=== PATIENT | female | born 2000 | race Caucasian/White ===

== ENCOUNTER → 2023-02-06 12:44 | Outpatient (BNVA) | payer OTHER, SELFPAY | PROVIDERS: Visit Provider Physician Assistant Surgical ==

== ENCOUNTER 2023-02-10 08:06 | Outpatient (AMB) | payer OTHER, SELFPAY ==
--- NOTE | 2023-02-10 08:33 | A.OFFVIS_ITS ---
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 12 [employer]ISITING [employer] [facility] BMI 41.0 Allergies No Known Allergies Allergy (Verified 02/10/23 08:33) Medication List - Last Reconciled 02/10/23 by Colton Vickers MD albuterol sulfate 90 mcg/actuation 2 puffs inhalation Q6H PRN duloxetine 30 mg PO DAILY HPI TV GRADES 9 THRU 12 [employer] SWL BMI 41.0 HPI Details Start time: 8.30am, End time: 9.20am ?I spent 45 minutes speaking with the patient on the phone plus an additional 5 minutes reviewing and updating records for a total of 50 minutes HPI Comments History of Present Illness Details Previous weight loss efforts: Exercise, self diets sleeps: 1am, wakes up: 10am Breakfast: skips Lunch: 1pm (fast food) Dinner: 5-6pm (pizza, grinders, wraps at work) Snacks: 3pm (fruit, nuts, apple sauce) Exercise: none now Fluids: Coffee/Tea: none, soda: none, juice: Cranberry/passion fruit juice (2- 3/wk), ETOH: (1/month) [facility] Medical History (Updated 02/10/23 @ 08:35 by Colton Vickers MD) Anxiety Depression Back pain Asthma Morbid obesity Assessment & Plan Assessment & Plan (1) Morbid obesity: Code(s): E66.01 - Morbid (severe) obesity due to excess calories Plan: 1.? Plan for lap sleeve gastrectomy. If diaphragmatic or ventral hernias are present at time of surgery, these will be repaired laparoscopically as well. Risks and complications were discussed in detail including possible conversion to an open procedure, anastomotic leak, bleeding requiring transfusion, small bowel obstruction, , DVT and pulmonary embolism, cardiac, or pulmonary complications, as intermediate frame tender complications such as anastomotic ulcer, insufficient weight loss and vitamin deficiencies. I emphasized the importance of close follow-up, adherence to instructions and good communication. 2. Nutritional counseling. A) WITH JUICE TYPE PROTEIN SHAKE: Start with one Isopure INFUSIONS protein shake (buy at [employer]) (HALF scoop in 8oz water) at 11am-1pm, dinner at 2pm (8 forks of protein and 8 forks of salad/vegetables), one more Isopure Infusions protein shake (HALF scoop in 8oz water) at 4pm-6pm, and 2 Zone Perfect protein bars (buy at [employer]) at 7pm-9pm and 10pm-12am. B) WITH MILK TYPE PROTEIN SHAKE: Start with one orgain protein shake (buy at [employer]) (one scoop in 8oz low fat unsweetened almond milk) at 11am-1pm, dinner at 2pm (8 forks of protein and 8 forks of salad/vegetables), one more ORGAIN protein shake (ONE scoop in 8oz low fat unsweetened almond milk) at 4pm-6pm, and 2 Zone Perfect protein bars (buy at [employer]) at 7pm-9pm and 10pm-12am. So you do 2 protein shakes, 2 protein bars and one meal per day. Meal to include lean meat (beef, fish, pork, turkey, chicken), or czech yogurt, or egg whites, or beans with a salad with olive oil and fruits (berries, pears, apples, kiwi). Avoid salt, breads, potatoes, rice, pasta, desserts. 3. Each shake would be drunk slowly, like coffee in a period of 2 hours. 4. Cut each bar in 4 pieces and eat each piece in 30min ?to make each bar last 2 hours. 5. I emphasized the importance of measuring accurately the food portion and measure it when serving the food in plate 6. The meal portions include 8 full-size forks of meat and 8 full-size forks of salad. You always eat the meat portion but you can replace up to 4 forks for salad/vegetables with rice, potatoes or pasta, or a fruit ?if you like. The less you do it the better weight loss will be. 7. One full-size fork is what it can be scooped on the fork without falling aside and not what can be bit with the fork. Use regular forks like those you find in a typical restaurant. 8.? Please send me weight measurements as soon as possible and then once a week. Always include your diet and exercise plan. 9. Please purchase a stationary bike, elliptical or treadmill at home that can track calories. Let me know if you do so I can give you an exercise plan. Goal is to burn 2000 calories per week on exercise, which means either 300 calories daily, or 400 calories 5 days per week, or 500 calories 4 days per week, or 650 calories 3 days per week. 10. Let me know if you decide to go to the Gym instead so I can give you an exercise plan as well. 11.?It is important of avoiding and for at least 18 months postoperatively and has been discussed at the infosession. 12. Goal is to lose at least 1.5-2lbs per week 13. Goal to lose 10% of your weight before surgery, which is about 22lbs. Ultimate weight goal: 195lbs before surgery 14. Please follow the diet plan exactly without any change. If you don't like something about the plan or you feel hungry you need to communicate with me so I can help you revise the plan. You should not change the plan yourself. (2) Asthma: Code(s): J45.909 - Unspecified asthma, uncomplicated Orders: Orders Zinc Today E66.01 - Morbid (severe) obesity due to excess calories, J45.909 - Unspecified asthma, uncomplicated Vitamin A Today E66.01 - Morbid (severe) obesity due to excess calories, J45.909 - Unspecified asthma, uncomplicated Ferritin Today E66.01 - Morbid (severe) obesity due to excess calories, J45.909 - Unspecified asthma, uncomplicated PTHI Today E66.01 - Morbid (severe) obesity due to excess calories, J45.909 - Unspecified asthma, uncomplicated TSH reflex Free T4 Today E66.01 - Morbid (severe) obesity due to excess calories, J45.909 - Unspecified asthma, uncomplicated H Pylori Breath Test Today E66.01 - Morbid (severe) obesity due to excess calories, J45.909 - Unspecified asthma, uncomplicated Vitamin D 25-OH Total Today E66.01 - Morbid (severe) obesity due to excess calories, J45.909 - Unspecified asthma, uncomplicated US abdomen comp w elastography Today E66.01 - Morbid (severe) obesity due to excess calories, J45.909 - Unspecified asthma, uncomplicated ECG 12 lead EKG Today E66.01 - Morbid (severe) obesity due to excess calories, J45.909 - Unspecified asthma, uncomplicated Insulin Today E66.01 - Morbid (severe) obesity due to excess calories, J45.909 - Unspecified asthma, uncomplicated Lipid Panel Today E66.01 - Morbid (severe) obesity due to excess calories, J45.909 - Unspecified asthma, uncomplicated IRON PROFILE Today E66.01 - Morbid (severe) obesity due to excess calories, J45.909 - Unspecified asthma, uncomplicated Complete Blood Count Auto Diff Today E66.01 - Morbid (severe) obesity due to excess calories, J45.909 - Unspecified asthma, uncomplicated Vitamin B12 and Folate Today E66.01 - Morbid (severe) obesity due to excess calories, J45.909 - Unspecified asthma, uncomplicated Comprehensive Met. Panel Today E66.01 - Morbid (severe) obesity due to excess calories, J45.909 - Unspecified asthma, uncomplicated Vitamin B1 Today E66.01 - Morbid (severe) obesity due to excess calories, J45.909 - Unspecified asthma, uncomplicated C Reactive Protein Today E66.01 - Morbid (severe) obesity due to excess calories, J45.909 - Unspecified asthma, uncomplicated Hemoglobin A1c Today E66.01 - Morbid (severe) obesity due to excess calories, J45.909 - Unspecified asthma, uncomplicated XR chest 2V Today E66.01 - Morbid (severe) obesity due to excess calories, J45.909 - Unspecified asthma, uncomplicated FL upper GI w air Today E66.01 - Morbid (severe) obesity due to excess calories, J45.909 - Unspecified asthma, uncomplicated Referrals Behavioral Health Referral E66.01 - Morbid (severe) obesity due to excess calories, J45.909 - Unspecified asthma, uncomplicated Nutrition/Dietitian Referral E66.01 - Morbid (severe) obesity due to excess calories, J45.909 - Unspecified asthma, uncomplicated Telehealth Telehealth Location of provider rendering services: practice address Location of patient: address on file Patient Identification confirmed using: Name, : Yes Telehealth method: voice only Patient verbally consented to treatment: Yes Patient verbally consented to billing insurance company: Yes Patient informed of any privacy concerns related to visit: Yes Minutes spent on Phone/Video with Pt.: 50 Coding Level of Care Code Tele New Pt Level 4 (40605) Diagnoses Morbid obesity E66.01 Asthma J45.909 Time Spent (min) 50
[2023-02-10 08:44] VITALS: BMI 41.0
== END 2023-02-10 09:21 | disposition home or self-care (01) ==
PROVIDERS: Visit Provider Surgery
DX: E66.01 Morbid (severe) obesity due to excess calories (principal); J45.909 Unspecified asthma, uncomplicated
CPT/HCPCS: 99204

== ENCOUNTER → 2023-02-10 08:06 | Outpatient (BNVA) | payer OTHER, SELFPAY | PROVIDERS: Visit Provider Surgery ==

== ENCOUNTER 2023-02-21 09:07 | Outpatient (REF) | payer OTHER, SELFPAY ==
--- NOTE | ~2023-02-21 | XR_ITS ---
EXAMINATION: XR CHEST 2 VIEWS CLINICAL INFORMATION: Morbid obesity. COMPARISON: None. TECHNIQUE: Frontal and lateral views of the chest were obtained. FINDINGS: The heart, great vessels, pulmonary vasculature and mediastinum are normal. The lungs show no focal infiltrate, effusion or pneumothorax. There is no acute osseous abnormality. There is a mild lower thoracic dextroscoliosis. XR/XR chest 2V IMPRESSION: No active cardiopulmonary disease.
--- NOTE | 2023-02-21 09:19 | ECG_ITS ---
Test Reason : E66.01 Blood Pressure : / mmHG Vent. Rate : 088 BPM Atrial Rate : 088 BPM P-R Int : 136 ms QRS Dur : 078 ms QT Int : 352 ms P-R-T Axes : 029 018 012 degrees QTc Int : 425 ms Normal sinus rhythm Normal ECG No previous ECGs available Referred By: Colton Vickers Electronically Signed By:NOEMI OLIVIA MD
[2023-02-21 09:42] LABS: MANUAL DIFF FLAG NO
[2023-02-21 10:49] LABS: Estimated Average Glucose 88 mg/dL; Hemoglobin A1c % 4.7 % (<6.0)
[2023-02-21 11:00] LABS: Alanine Aminotransferase 29 U/L (0-31); Albumin Level 3.9 g/dL (3.5-5.0); Alkaline Phosphatase 64 U/L (39-117); Anion Gap 10 (12-20); Aspartate Amino Transferase 24 U/L (5-31); Bilirubin Total 0.5 mg/dL (0.0-1.0); Blood Urea Nitrogen 13 mg/dL (9-16); C Reactive Protein 3.29 mg/dL (< or = 0.50); Calcium 9.1 mg/dL (8.4-10.2); Carbon Dioxide 24 mmol/L (22-29); Chloride 107 mmol/L (96-108); Cholesterol 142 mg/dL (<200); Estimated Glomerular Filt Rate > 60; Glucose Random 87 mg/dL (60-115); HDL Cholesterol 43 mg/dL (>40); Iron 55 mcg/dL (30-160); LDL Cholesterol Calculated 83 mg/dL (<100); Percent Iron Saturation 19 % (15-50); Potassium 3.9 mmol/L (3.3-5.1); Sodium 137 mmol/L (135-145); Total Iron Binding Capacity 292 mcg/dL (228-428); Total Protein 7.4 g/dL (6.5-8.0); Triglycerides 80 mg/dL (<150); Unsaturated Iron Binding 237 ug/dL
[2023-02-21 11:20] LABS: Folate 12.5 ng/mL (> or = 4.0); Vitamin B12 729 pg/mL (200-900)
[2023-02-21 11:23] LABS: Ferritin 49 ng/mL (10-122); Insulin 17 uU/mL (2-29); TSH reflex Free T4 1.89 uIU/mL (0.32-4.0); Vitamin D 25-OH Total 28.5 ng/mL (>30)
[2023-02-21 11:43] LABS: Basophils Percent Auto 0.5 % (0-2); Eosinophils Absolute Auto 0.2 X10*3/uL (0.0-0.4); Eosinophils Percent Auto 2.5 % (0-4); Hematocrit 38.4 % (37.0-47.0); Hemoglobin 12.7 g/dl (12.0-16.0); Imm Gran Abs Auto 0.03 X10*3/uL (0.00-0.03); Imm Gran Pct Auto 0.4 % (0.0-0.4); Lymphocytes Absolute Auto 2.2 X10*3/uL (1.2-4.9); Lymphocytes Percent Auto 29.5 % (20-40); Mean Corpuscular HGB Conc 33.1 g/dl (31.0-35.0); Mean Corpuscular Hemoglobin 26.8 pg (27.0-33.0); Mean Platelet Volume 9.9 fL (9.4-12.3); Monocytes Absolute Auto 0.6 X10*3/uL (0.1-1.2); Monocytes Percent Auto 7.9 % (2-11); Neutrophils Absolute Auto 4.4 x10*3/uL (2.0-8.3); Neutrophils Percent Auto 59.2 % (45-73); Platelet Count 263 X10*3/uL (160-400); Red Blood Count 4.74 X10*6/uL (4.20-5.50); White Blood Count 7.5 X10*3/uL (4.8-10.8)
[2023-02-23 17:18] LABS: Zinc 80 mcg/dL (60-130)
[2023-02-24 03:19] LABS: Vitamin A 39 mcg/dL (38-98)
[2023-02-25 11:38] LABS: Vitamin B1 <6 nmol/L (8-30)
== END 2023-02-21 09:08 | disposition home or self-care (01) ==
LOC: HO.LAB 09:07
PROVIDERS: Visit Provider Surgery
DX: E66.01 Morbid (severe) obesity due to excess calories (principal); J45.909 Unspecified asthma, uncomplicated
CPT/HCPCS: 36415; 71046; 80053; 80061; 82306; 82607; 82728; 82746; 83036; 83525; 83540; 84425; 84443; 84590; 84630; 85025; 86140; 93005

== ENCOUNTER 2023-02-24 08:15 | Outpatient (AMB) | payer OTHER, SELFPAY ==
--- NOTE | 2023-02-24 08:56 | MHC.OFFVISWM ---
Intake Intake Visit Reasons: TV Follow Up SWL - 1ST Allergies No Known Allergies Allergy (Verified 02/10/23 08:33) HPI TV Follow Up SWL - 1ST HPI Details Start time: 8.40am, End time: 9am ?I spent 15 minutes speaking with the patient on the phone plus an additional 5 minutes reviewing and updating records for a total of 20 minutes HPI Comments History of Present Illness Details Ordered the body composition scale Is doing one Orgain protein shake (one scoop in 8oz low fat unsweetened almond milk) at 11am-1pm, dinner at 2pm (8 forks of protein and 8 forks of salad/vegetables), one more ORGAIN protein shake (ONE scoop in 8oz low fat unsweetened almond milk) at 4pm-6pm, and 2 Zone Perfect protein bars at 7pm-9pm and 10pm-12am. Exercise: will join a Gym [facility] Medical History (Updated 02/24/23 @ 08:57 by Colton Vickers MD) Anxiety Depression Back pain Asthma Morbid obesity Assessment & Plan Assessment & Plan (1) Morbid obesity: Code(s): E66.01 - Morbid (severe) obesity due to excess calories Plan: 1. Continue same nutritional plan of one Orgain protein shake (one scoop in 8oz low fat unsweetened almond milk) at 11am-1pm, dinner at 2pm (8 forks of protein and 8 forks of salad/vegetables), one more ORGAIN protein shake (ONE scoop in 8oz low fat unsweetened almond milk) at 4pm-6pm, and 2 Zone Perfect protein bars at 7pm-9pm and 10pm-12am. 2. Start treadmill with an incline of 2.0 and speed of 3.0. Increase incline by 1 every 3 min to a max incline of 8.0, stay 3min at 8.0 and then return to 2.0 and repeat same steps until calorie goal is met. Goal is to burn 2000 calories per week on exercise, which means either 300 calories daily, or 400 calories 5 days per week, or 500 calories 4 days per week, or 650 calories 3 days per week. 3. Send me weight measurements from your new scale as soon as you receive it and then once a week Medications: New cholecalciferol (vitamin D3) 125 mcg PO DAILY 30 caps 2RF E55.9 - Vitamin D deficiency, unspecified Telehealth Telehealth Location of provider rendering services: practice address Location of patient: address on file Patient Identification confirmed using: Name, : Yes Telehealth method: voice only Patient verbally consented to treatment: Yes Patient verbally consented to billing insurance company: Yes Patient informed of any privacy concerns related to visit: Yes Minutes spent on Phone/Video with Pt.: 20 Coding Level of Care Code Tele Est Pt Level 3 (94371) Diagnoses Morbid obesity E66.01 Time Spent (min) 20
== END 2023-02-24 09:01 | disposition home or self-care (01) ==
LOC: HO.HBS 08:15
PROVIDERS: PCP Internal Medicine; Visit Provider Surgery
DX: E66.01 Morbid (severe) obesity due to excess calories (principal)
CPT/HCPCS: 99213

== ENCOUNTER → 2023-02-24 08:15 | Outpatient (BNVA) | payer OTHER, SELFPAY | PROVIDERS: PCP Internal Medicine; Visit Provider Surgery ==

== ENCOUNTER 2024-07-08 11:59 | Outpatient (AMB) | payer OTHER, SELFPAY ==
--- NOTE | 2024-07-08 12:41 | MHC.PC.OV ---
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 She sees [facility], for her routine Pap and pelvic exam, last done 04/04/2023 with negative findings. Has mild intermittent asthma, takes albuterol only as needed for episodes of bronchospasm and wheezing. She does not smoke cigarettes but does vape. Has morbid obesity, previously [place] [facility] , as decided against getting bariatric surgery. She has been adhering to a healthy diet, and has been trying to exercise regularly, has lost some weight but not enough. Patient is also think of getting breast reduction surgery but they would not do surgery until she loses some weight. She is interested in trying other treatment options for weight loss [facility] Medical History (Updated 07/17/24 @ 16:27 by Sanjana Huang MD) Mild intermittent asthma PCOS (polycystic ovarian syndrome) Back pain Morbid obesity Surgical History (Updated 07/08/24 @ 13:01 by Sanjana Huang MD) History of Family History (Updated 07/08/24 @ 13:04 by Sanjana Huang MD) Father Glioblastoma Mother Essential hypertension Social History Housing: Apartment Patient Tobacco Use Status: Never used Tobacco e-Cigarette/Vaping Use: Currently Using service: No Current occupational status: employed Current occupational exposures/hazards: No Cognitive needs: No Hearing needs: No Vision needs: No Female Reproductive History Menstrual Date of last menstrual period: 06/24/24 Questionnaire PHQ-9 Over the last 2 weeks, how often have you been bothered by any of the following problems? 33084 - PHQ-9 Billing: Patient declined-do not bill Source: Developed by Drs. Douglas Gan, Flavia Paz, Mert Centeno and colleagues, with an educational elías from [employer]. Thrive Questionnaire Date Thrive assessed: 07/08/24 I am a: Patient What is your living situation today?: I have a steady place to live Within the past 12 months, did the food you bought not last and you didn't have the money to get more?: Sometimes True Within the past 12 months, did you worry whether your food would run out before you got money to buy more?: Sometimes True Do you have trouble paying for medicines?: No Do you have trouble getting transportation to medical appointments?: No Do you have trouble paying your heating and electricity bill?: No Do you have trouble taking care of your child, family member or friend?: No Do you have trouble with day-to-day activities such as bathing, preparing meals, shopping, managing finances, etc.?: Yes Are you currently unemployed and looking for a job?: No Are you interested in more education?: No Please select the resources that you would like help with: None Currently or been in a relationship where the following occur: I choose not to answer THRIVE Score: 2 AUDIT C Alcohol Use Questionnaire (AUDIT-C) 1. How often do you have a drink containing alcohol?: Monthly or less 2. How many drinks containing alcohol do you have on a typical day when you are drinking?: 1 or 2 3. How often do you have six or more drinks on one occasion?: Less than monthly Total Score: 2 Score Reviewed/Action Taken: Yes CARLITA-7 AMB Questionnaire CARLITA-7 Date CARLITA - 7 assessed: 07/08/24 Feeling nervous, anxious, or on edge: 2 = More than half the days Not being able to stop or control worryin = More than half the days Worrying too much about different things: 2 = More than half the days Trouble relaxin = Several days Being so restless that it is hard to sit still: 1 = Several days Becoming easily annoyed or irritable: 3 = Nearly every day Feeling afraid as if something awful might happen: 0 = Not at all Total CARLITA-7 score (0-4 normal; 5-9 mild; 10-14 moderate; 15-21 severe): 11 Source: Developed by Drs. Douglas Gan, Flavia Paz, Mert Centeno and colleagues, with an educational elías from [employer]. CARLITA-7 Assessment Billing CARLITA-7 Assessment Tool: CARLITA-7 Assessment 39462 Review of Systems Const Reports body aches (Back pain), Denies fatigue, Denies fever(s), Denies headache(s) and Denies weakness Eyes Denies change in vision, Denies eye discharge and Denies itchy eyes ENT Denies dizziness, Denies headache(s), Denies nasal congestion, Denies nasal discharge and Denies sore throat Card Denies chest pain, Denies lightheadedness, Denies palpitations and Denies dyspnea Resp Denies chest congestion, Denies cough, Denies dyspnea and Denies wheezing GI Denies abdominal pain, Denies change in bowel habits and Denies heartburn Denies hematuria, Denies urinary frequency, Denies dysuria and Denies urinary urgency Musc Reports as per HPI Skin/Breast Denies breast pain, Denies breast mass, Denies lesions and Denies rash Neuro Denies dizziness, Denies headache(s) and Denies weakness Psych Reports no additional complaints Endo Denies fatigue, Denies polydipsia, Denies polyuria and Denies palpitations Augsto/Lymph Denies easy bruising Aller/Immun Denies itchy eyes, Denies seasonal rhinorrhea and Denies wheezing Physical exam (Primary Care) Vital Signs: Last Vital Signs Pulse 82 07/08/24 12:44 Resp 18 07/08/24 12:44 BP 126/88 07/08/24 12:44 Pulse Ox 100 07/08/24 12:44 Oxygen Delivery Method Room Air 07/08/24 12:44 BMI result Body Mass Index 39.3 Tobacco/Smoking Status: Tobacco use Status Tobacco use date assessed 07/08/24 07/08/24 12:48 Patient Tobacco Use Status Never used Tobacco 07/08/24 12:48 e-Cigarette/Vaping Use Currently Using 07/08/24 12:48 Thrive Assessment: Date of Thrive Assessment Date Thrive assessed 07/08/24 07/08/24 12:48 Currently or been in a relationship where the following occur: I choose not to answer Const General: no acute distress and alert Orientation/consciousness: patient oriented x3 HENMT Ears: external ears normal, TM's normal bilaterally and EAC's normal General nose exam: Normal external nose present Face and sinus: Yes face symmetric Mouth: Normal oral and palatal mucosa present, lip normal, tongue normal, oropharynx normal and moist mucous membranes Eyes General: appearance normal, both eyes and all related structures Eyelids: Yes eyelids normal Conjunctivae: conjunctivae normal Sclerae: sclerae normal Pupils: Equal, round and reactive pupils present EOM: EOMs intact bilaterally Neck Neck: Yes full ROM, Yes no lymphadenopathy and Yes supple Thyroid: Thyroid normal Chest Chest palpation & inspection: normal inspection of the chest Breast/axilla inspection: normal inspection of the breasts Breast/axilla palpation: normal palpation of the breasts Resp Effort & Inspection: normal respiratory effort and able to speak in complete sentences Auscultation: clear to auscultation bilaterally Cardio Rate: regular rate Rhythm: regular rhythm Heart sounds: S1 normal heart sound present and S2 normal heart sound present GI Palpation (GI): Soft to palpation, nontender, no guarding and no masses Auscultation: normal bowel sounds General: Yes no CVA tenderness Back/Spine/Pelvis Back: no CVA tenderness and back tenderness (Slight tenderness over interscapular area and upper back) Skin General skin exam: no rashes or lesions noted Neuro General: patient oriented x3, gait normal, moves all extremities, Normal light touch and pain sensation, no focal motor deficits and CN's II-XI intact bilaterally Cranial nerves: Yes Equal, round and reactive pupils present Cognition (Neuro): normal cognition Gait exam (Neuro): Normal gait present Motor exam (neuro): 5/5 motor strength present throughout Extrem General: Yes normal to inspection, Yes full ROM, Yes no joint enlargement, Yes no pedal edema and Yes normal gait Psych Appearance: grossly normal and well kempt Mental Status: mental status grossly normal Speech and movement: Normal speech and movement present Affect: normal affect Attitude: cooperative Thought process: Normal thought process present Thought content: Normal thought content present Coding Level of Care Code New Pt Prev Care 18-39yr([id number] Diagnoses Annual visit for general adult medical examination with abnormal findings Z00.01 Morbid obesity E66.01 Mild intermittent asthma without complication J45.20 Asthma complication type: uncomplicated PCOS (polycystic ovarian syndrome) E28.2 Additional Codes CARLITA-7 Assessment Billing - CARLITA-7 Assessment Tool: CARLITA-7 Assessment 91622 ([id number]) Assessment & Plan Assessment & Plan (1) Annual visit for general adult medical examination with abnormal findings: Code(s): Z00.01 - Encounter for general adult medical examination with abnormal findings Plan: Will check appropriate labs. Recommended dental visit every 6 months and regular eye exams, at least every 2 years. Take adequate calcium in diet and vitamin-D 3 at 2000 IU per cap once a day, in addition to weight-bearing exercises to help maintain good muscle tone and weight control. Instructed to do self-breast exam, and recommended to get yearly mammogram, starting at age 40. Goes to [facility] for routine Pap and pelvic exam . up-to-date with her Tdap,, reminded to get her yearly flu shot but does not want to get COVID boosters. Patient advised to stop vaping. (2) Morbid obesity: Code(s): E66.01 - Morbid (severe) obesity due to excess calories Category: Medical Plan: Will try on phentermine, started dose of 15 mg to take 2 hours after breakfast. Reinforced importance of combining this with adherence to healthy eating habits and getting regular exercise. See her back for follow-up in 09/2024 (3) Mild intermittent asthma: Code(s): J45.20 - Mild intermittent asthma, uncomplicated Category: Medical Qualifiers: Asthma complication type: uncomplicated Qualified Code(s): J45.20 - Mild intermittent asthma, uncomplicated Plan: Uses albuterol inhaler as needed for episodes of bronchospasm and wheezing, which occurs rarely (4) PCOS (polycystic ovarian syndrome): Code(s): E28.2 - Polycystic ovarian syndrome Category: Medical Plan: Followed at [facility], weight loss recommended Orders: Orders Aspartate Amino Transferase 07/08/24 E66.01 - Morbid (severe) obesity due to excess calories, E55.9 - Vitamin D deficiency, unspecified, F41.9 - Anxiety disorder, unspecified, J45.20 - Mild intermittent asthma, uncomplicated, Z00.01 - Encounter for general adult medical examination with abnormal findings Basic Metabolic Panel Fasting 07/08/24 E66. - Morbid (severe) obesity due to excess calories, E55.9 - Vitamin D deficiency, unspecified, F41.9 - Anxiety disorder, unspecified, J45.20 - Mild intermittent asthma, uncomplicated, Z00. - Encounter for general adult medical examination with abnormal findings Lipid Panel 07/08/24 E66. - Morbid (severe) obesity due to excess calories, E55.9 - Vitamin D deficiency, unspecified, F41.9 - Anxiety disorder, unspecified, J45.20 - Mild intermittent asthma, uncomplicated, Z00. - Encounter for general adult medical examination with abnormal findings Vitamin D 25-OH Total 07/08/24 E66. - Morbid (severe) obesity due to excess calories, E55.9 - Vitamin D deficiency, unspecified, F41.9 - Anxiety disorder, unspecified, J45.20 - Mild intermittent asthma, uncomplicated, Z00.01 - Encounter for general adult medical examination with abnormal findings TSH reflex Free T4 07/08/24 E66. - Morbid (severe) obesity due to excess calories, E55.9 - Vitamin D deficiency, unspecified, F41.9 - Anxiety disorder, unspecified, J45.20 - Mild intermittent asthma, uncomplicated, Z00.01 - Encounter for general adult medical examination with abnormal findings Alanine Aminotransferase 07/08/24 E66. - Morbid (severe) obesity due to excess calories, E55.9 - Vitamin D deficiency, unspecified, F41.9 - Anxiety disorder, unspecified, J45.20 - Mild intermittent asthma, uncomplicated, Z00.01 - Encounter for general adult medical examination with abnormal findings Complete Blood Count Auto Diff 07/08/24 E66. - Morbid (severe) obesity due to excess calories, E55.9 - Vitamin D deficiency, unspecified, F41.9 - Anxiety disorder, unspecified, J45.20 - Mild intermittent asthma, uncomplicated, Z00.01 - Encounter for general adult medical examination with abnormal findings
[2024-07-08 12:44] VITALS: BP 126/88; PULSE 82; RESP 18; O2SAT 100; BMI 39.3
--- OUTSIDE RECORDS SUMMARY | 2024-07-08 14:04 | XMS_ITS | Encounter Summary ---
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 Primary Care Provider [phone] Encounter Details Date Type Department Care Team (Late st Contact Info) Description 06/18/2014 Conversion Encounter [facility] [address] [place] [id number] Social History Tobacco Use Types Packs/Day Years Used Date Smoking Tobacco: Never Assessed Comments Unknown Sex and Gender Information Value Date Recorded Sex Assigned at Not on file Legal Sex Female 6:29 PM EDT Gender Identity Female 06/14/2020 9:47 AM EDT Sexual Orientation Not on file documented as of this encounter Plan of Treatment Not on file documented as of this encounter Visit Diagnoses Not on filedocumented in this encounter Care Teams [address] [employer] Relationship Specialty Start Date End Date Gloria Gomez NP [address] [place] [address] [place] [address] PCP - General Pediatrics 09/13/22 documented as of this encounter
--- OUTSIDE RECORDS SUMMARY | 2024-07-08 14:04 | XMS_ITS | Clinical Summary ---
Author Organization [facility] Address [address] [place] [address] Phone Care Team Providers Care Garbage Collector Name Role Phone Gloria Gomez COMMUNITY DIETITIAN Primary Care Provider [phone] Allergies Active Allergy Reactions Criticality Noted Date Comments Food 04/29/2022 Shellfish Allergy 04/29/2022 Medications cetirizine (ZYRTEC ALLERGY) 10 MG tabletIndication s:Acute URI Take 1 tablet (10 mg total) by mouth nightly as needed for allergies. 30 tablet 1 9 Active ibuprofen 800 MG tablet 0 0 Active hydrOXYzine 25 MG tabletIndication s:Depression with anxiety Take 1 tablet (25 mg total) by mouth 3 (three) times a day as needed for anxiety for up to 10 days. 15 tablet 1 2 Active triamcinolone 0.1 % creamIndications :Rash Apply topically 2 (two) times a day as needed for rash. 15 g 1 3 Active Additional Information Patient not taking.Reported on 09/07/2022 albuterol HFA 108 (90 Base) MCG/ACT inhalerIndicatio ns:Mild intermittent asthma without complication Inhale 2 puffs every 4 (four) hours as needed for wheezing or shortness of breath. 2 Units 3 Active FLUoxetine (PROzac) 10 MG capsuleIndicatio ns:Anxiety with depression Take one capsule by mouth along with a 20mg capsule to equal 30mg daily. 30 capsule 3 Active FLUoxetine (PROzac) 20 MG capsuleIndicatio ns:Anxiety with depression Take one capsule by mouth along with a 10mg capsule to equal 30mg daily. 30 capsule 3 Active Active Problems Problem Noted Date Diagnosed Date Otitis externa 06/16/2022 Assessment & Plan (06/16/2022 3:21 PM EDT): Exam consistent with left otitis externa. Giselle should d/c the drops she is using and begin the drops ordered today. Call office for re-evaluation if symptoms persist or worsen. Missed period 05/26/2022 Assessment & Plan (05/26/2022 12:18 PM EST): Negative test. Viral URI 05/26/2022 Assessment & Plan (05/26/2022 12:18 PM EST): Exam is reassuring. No red flags. ?[place]. [place] spot negative. Will do EBV panel per patient request. Will do CBC to r/o bacterial infection. Follow up if symptoms persist or worsen. Viral Upper Respiratory Infection Plan: ?? Encourage extra fluids and rest. ?? The following may help: ?? steamy baths ?? cool-mist humidifiers ?? nasal saline drops or sprays to help with congestion. ?? Can use Ibuprofen or Acetaminophen for discomfort or fever. ?? If older than one year of age, may offer 1-2 teaspoons of honey (straight, or mixed with tea or warm lemonade) to help with cough. ?? Vicks chest rub may help with ease of breathing and reducing cough. ?? Monitor for rapid breathing, retractions (labored breathing), wheezing, or shortness of breath. ?? Call if worsening, fever for more than 4-5 days, or no improvement after a few days. Severe obesity 04/29/2022 Eczema 04/15/2022 Assessment & Plan (09/07/2022 11:03 AM EDT): Rash is consistent with eczema It appears fairly mild today I would suggest moisturizing skin BID, avoid hot showers, dry skin well, good water intake Avoid products with scents and dyes. Suggest 'free and clear' products. Will also prescribe topical steroid cream to use daily x 2 weeks only for flares. Assessment & Plan (04/29/2022 3:06 PM EST): Moisturizer eucerin cream Take shower and pat dry first Humidifier in bed room Drink water dont take hot showers. Use zyrtec before bed if itching. Overweight 01/18/2022 Chronic bilateral thoracic back pain 01/18/2022 Moderate episode of recurrent major depressive d isorder 10/09/2019 PCOS (polycystic ovarian syndrome) 08/23/2017 Depression with anxiety 04/02/2017 Overview (04/15/2019): Depression (311) Onset: 04/02/2017 Added by: Kaylee Lu Extrinsic asthma 07/09/2014 Overview (04/15/2019): Asthma (493.00) Onset: 07/09/2014 Added by: Leta Grey Resolved Problems Problem Noted Date Diagnosed Date Resolved Date Lymphadenitis 04/15/2022 04/15/2022 Left foot pain 10/14/2020 11/03/2020 Assessment & Plan (10/14/2020 1:36 PM EDT): Significant foot pain affecting patient's ability to ambulate and work. With localized pain to 2nd metatarsal of left foot. Will obtain x-ray to check for a bone issue or fracture. Also getting lab work to check for infection or significant inflammation with tenderness noted in this area. Referral to ortho for further work up of foot pain. Tinea corporis 01/24/2020 06/11/2020 Assessment & Plan (01/24/2020 4:59 PM EDT): Rash consistent with yeast overgrowth. Will treat with topical antifungal. Excessive or frequent menstruation 06/12/2017 11/03/2020 Overview (04/15/2019): Menometrorrhagia (626.2) Onset: 06/12/2017 Added by: Tasha Moody Backache 09/03/2014 06/11/2020 Overview (04/15/2019): Back pain (724.5) Onset: 09/03/2014 Added by: Kelly Dyson Other malaise and fatigue 07/09/2014 Overview (04/15/2019): Fatigue (780.79) Onset: 07/09/2014 Added by: Leta Grey Immunizations Immunization Administration Dates Next Due DTaP 12/18/2003, 1,1999,07/26,1999 DTaP 5 12/18/2003, 1,1999,07/26,1999 HPV Vaccine 9 Valent 03/31/2017 HPV, Quadrivalent 08/22/2014,06/20/2014 Hep A, ped/adol 03/31/2017,06/20/2014 Hep B 1999,1999,1999 Hep B, ped/adol 1999,1999,1999 HiB 07/12/2000, 0,1999,05/25 Hib (PRP-T) 07/12/2000, 0,1999,05/25 IPV 12/18/2003, 0,1999,05/25 Influenza, injectable, quadr ivalent, preservative free 02/07/2021,01/19/2020,01/31/2018 Influenza, injectable, trivalent 02/25/2006 MMR 12/18/2003,04/05/2000 Meningococcal Conj (Menactra) MCV4P 03/31/2017 OPV 1999,1999 PPD Test 08/18/2021 Tdap 06/15/2021,03/09/2011 Varicella 03/09/2011,11/16/2004 Family History Medical History Relation Name Comments No Known Problems Brother Gene No Known Problems Mother Kaycee No Known Problems Sister Francesca Relation Name Status Comments Brother Gene Alive Father Carlos 2014 from naomy r Mother Kaycee Alive Sister Francesca Alive Social History Tobacco Use Types Packs/Day Years Used Date Smoking Tobacco: Never Comments:Never Smoker Alcohol Use Standard Drinks/Week Comments Yes 26 (1 standard drink = 0.6 oz pu re alcohol) Hunger/Food Answer Date Recorded In the last 12 months, did y ou or your family ever eat less than you felt you should because there wasn't enough money for food? Yes 06/15/2021 Stable Housing Answer Date Recorded Are you worried that in the next 2 months you may not have stable housing? Yes 06/15/2021 Transportation Concerns Answer Date Rec orded In the last 12 months, have you or your family ever had to go without healthcare because you didn't have a way to get there? No 06/15/2021 Hazards in Home Answer Date Recorded Think about the place you li ve. Do you have problems with any of the following? Pests (mice or roaches), mold, no/not working smoke detectors, water leaks, no window guards. No 2021 Financing Utilities Answer Date Recorde d In the last 12 months, has t he electric, gas, oil, or water company threatened to shut off your services in your home? No 06/15/2021 Safety at Home Answer Date Recorded Are you or your family worried about feeling saf e in your home? No 06/15/2021 Outside Support Answer Date Recorded Do you feel that you need mo re support from other people or programs to help you care for yourself or your family? No 06/15/2021 Understanding Health Concerns Answer Da te Recorded Do you need help understandi ng your or your child's healthcare needs (diagnosis, medications, plan, etc.)? No 06/15/2021 Financing Health Concerns Answer Date R ecorded In the last 12 months, was t here a time when your child needed to see a doctor or get medications or supplies but could not because of cost? No 06/15/2021 Missing School or Work Answer Date Logan rded Did you or your child miss s chool or work because of a health problem that could have been avoided? No 06/15/2021 Comments No Sex and Gender Information Value Date Recorded Sex Assigned at Not on file Legal Sex Female 6:29 PM EDT Gender Identity Female 06/14/2020 9:47 AM EDT Sexual Orientation Not on file Last Filed Vital Signs Vital Sign Reading Time Taken Comments Blood Pressure 122/76 09/07/2022 10:32 AM EDT Pulse 86 09/07/2022 10:32 AM EDT Temperature 36.6 ??C (97.8 ??F) 06/16/2022 2:26 PM ED T Respiratory Rate - - Oxygen Saturation - - Inhaled Oxygen Concentration - - Weight 99 kg (218 lb 3.2 oz) 09/07/2022 10:32 AM EDT Height 156.5 cm (5' 1.61 ) 01/18/2022 10:37 AM E DT Body Mass Index 40.41 01/18/2022 10:37 AM EDT Plan of Treatment Health Maintenance Due Date Last Done Comments Influenza Vaccines (#1) 2023 02/08/20 21, 01/19/2020, 01/31/2018, Additional history exists COVID-19 Vaccine ( season) 2023 12/24/2020, 12/03/2020 DTaP,Tdap,and Td Vaccines (8 - Td or Tdap) 06/16/2031 06/15/2021, 03/09/2011, 12/18/2003, Additional history exists Hepatitis B Vaccines Completed 1999, 1999, 1999, Additional history exists HIB Vaccines Completed 07/12/2000, 06/25, 1999, Additional history exists IPV Vaccines Completed 12/18/2003, 09/24, 1999, Additional history exists MMR Vaccines Completed 12/18/2003, 04/05/2000 Varicella Vaccines Completed 03/09/2011, 11/16/2004 HPV Vaccines Completed 03/31/2017, 07/26, 06/20/2014 Hepatitis A Vaccines Completed 03/31/2017, 06/21/19 15 Meningococcal Vaccine Completed 03/31/2017 Men B Vaccine Aged Out No longer kaleb jaffe based on patient's age to complete this topic Pneumococcal Vaccine Aged Out No long er eligible based on patient's age to complete this topic Procedures * Due to [place] tipple.me law, this organization might not be sharing sensitive test results. Procedure Name Priority Date/Time Associated Diagnosis Comments CHLAMYDIA GC AMP PROBE Routine 06/15/2021 2:04 PM EDT Well adult exam from Last 3 Months or Most Recently Relevant to Health Maintenance Results * Due to [facility] law, this organization might not be sharing sensitive test results. * CHLAMYDIA GC AMP PROBE (06/15/2021 2:04 PM EDT) Chlamydia Trachomatis, Amplified NEGATIVE (NEG) [facility] Comment: No Chlamydia Trachomatis RNA detected in this patient's sample ? (REFERENCE RANGE/NORMAL VALUE: NOT DETECTED) ? Note: This test uses mr teacher- mediated amplification method to detect rRNA from C. Trachomatis N.GONORRHOEAE AMP PROBE NEGATIVE (NEG) [facility] Comment: No Neisseria Gonorrhoeae RNA detected in this patient's sample ? (REFERENCE RANGE/NORMAL VALUE: NOT DETECTED) ? NOTE: This test uses mr teacher-mediated amplification method to detect rRNA from N.Gonorrhoeae. A negative result does not preclude infection. In the case of a negative urine result, testing of an endocervical(female) or urethral (male) specimen is recommended if there is high clinical suspicion of infection. Due to very high sensitivity of Nucleic Acid Amplification Test, false positive results may occur. Therefore, specimen handling is extremely important. In patients in whom the disease is unlikely, additional sample for testing should be considered after an initial positive result. The performance characteristics of this test have not been evaluated in children. The Aptima Combo2 assay is not intended for the evaluation of suspected sexual abuse or for other medico-legal indications. The ordering provider should assess if the patient had consensual sex without risk of sexual abuse. Consult the [facility] if needed. Contact phone number . Therapeutic failure or success cannot be determined with the Aptima Combo2 assay since nucleic acid may persist following appropriate antimicrobial therapy. The Centers for Disease Control and Prevention (CDC) recommends confirmatory retesting using culture or a different nucleic acid amplification test when positive results occur, if indicated. CHLAM/GC AMP PROBE SPEC TYPE VAGINAL SPECIMEN [facility] Comment: Testing performed or reported by [facility], a Service of [facility], [facility] [place] [address] Alex Tiwari MD, Capacity Analyst [facility]# [id number] Swab (Vagina) 06/15/2021 2:0 4 PM EDT 06/15/2021 7:57 PM EDT us Lyndsey Oliva MD LAB MICROBIOLOGY - GENERAL ORDER SANDIE Final Result [facility] from Last 3 Months or Most Recently Relevant to Health Maintenance Care Teams Garbage Collector Relationship Specialty Start Date End Date Gloria Gomez NP [address] [place] [address] PCP - General Pediatrics 09/13/22
--- OUTSIDE RECORDS SUMMARY | 2024-07-08 14:04 | XMS_ITS | Encounter Summary ---
Author Organization [facility] Address [address] [place] [address] Phone Care Team Providers Care Box Office Manager Name Role Phone Gloria Gomez NP Primary Care Provider [phone] Reason for Visit * Reason Comments Med Refill Encounter Details Date Type Department Care Team (Late st Contact Info) Description 08/06/2020 Refill [facility] [address] [place] [address] Lyndsey Oliva MD [address] [place] [address] Depression with anxiety Social History Tobacco Use Types Packs/Day Years Used Date Smoking Tobacco: Never Comments:Never Smoker Alcohol Use Standard Drinks/Week Comments Not Currently 0 (1 standard drink = 0.6 oz pur e alcohol) Hunger/Food Answer Date Recorded In the last 12 months, did y ou or your family ever eat less than you felt you should because there wasn't enough money for food? No 06/11/2020 Stable Housing Answer Date Recorded Are you worried that in the next 2 months you may not have stable housing? No 06/11/2020 Transportation Concerns Answer Date Rec orded In the last 12 months, have you or your family ever had to go without healthcare because you didn't have a way to get there? No 06/11/2020 Hazards in Home Answer Date Recorded Think about the place you li ve. Do you have problems with any of the following? Pests (mice or roaches), mold, no/not working smoke detectors, water leaks, no window guards. No 2020 Financing Utilities Answer Date Recorde d In the last 12 months, has t he electric, gas, oil, or water company threatened to shut off your services in your home? No 06/11/2020 Safety at Home Answer Date Recorded Are you or your family worried about feeling saf e in your home? No 06/11/2020 Outside Support Answer Date Recorded Do you feel that you need mo re support from other people or programs to help you care for yourself or your family? No 06/11/2020 Understanding Health Concerns Answer Da te Recorded Do you need help understandi ng your or your child's healthcare needs (diagnosis, medications, plan, etc.)? No 06/11/2020 Financing Health Concerns Answer Date R ecorded In the last 12 months, was t here a time when your child needed to see a doctor or get medications or supplies but could not because of cost? No 06/11/2020 Missing School or Work Answer Date Logan rded Did you or your child miss s chool or work because of a health problem that could have been avoided? No 06/11/2020 Comments No Sex and Gender Information Value Date Recorded Sex Assigned at Not on file Legal Sex Female 6:29 PM EDT Gender Identity Female 06/14/2020 9:47 AM EDT Sexual Orientation Not on file documented as of this encounter Plan of Treatment Not on file documented as of this encounter Visit Diagnoses Diagnosis Depression with anxiety Dysthymic disorder documented in this encounter Care Teams Box Office Manager Relationship Specialty Start Date End Date Gloria Gomez NP [facility] [place] [address] PCP - General Pediatrics 09/13/22 documented as of this encounter
--- OUTSIDE RECORDS SUMMARY | 2024-07-08 14:04 | XMS_ITS | Encounter Summary ---
Author Organization [facility] Address [address] [place] [address] Phone Care Team Providers Care Maintainer Central Office Name Role Phone Golria Gomez NP Primary Care Provider Reason for Visit * Reason Onset Date Comments Med Refill 08/18/2022 Encounter Details Date Type Department Care Team (Late st Contact Info) Description 08/18/2022 Refill [facility] [address] [place] [address] Lyndsey Oliva MD [address] [place] [address] Mild intermittent asthma without complication; Anxiety with depression Social History Tobacco Use Types Packs/Day Years [...] as of this encounter Visit Diagnoses Diagnosis Mild intermittent asthma without complication Anxiety with depression documented in this encounter Care Teams Maintainer Central Office Relationship Specialty Start Date End Date Gloria Gomez NP [address] [place] [address] PCP - General Pediatrics 09/13/22 documented as of this encounter
--- OUTSIDE RECORDS SUMMARY | 2024-07-08 14:04 | XMS_ITS | Encounter Summary ---
Author Organization [facility] Address [address] [place] [address] Phone Care Team Providers Care Registered Phlebotomist Part Time Name Role Phone Gloria Gomez NP Primary Care Provider [phone] Reason for Visit * Reason Comments Med Refill Encounter Details Date Type Department Care Team (Late st Contact Info) Description 04/06/2022 Refill [facility] [address] [place] [address] Lyndsey Oliva MD [address] [place] [address] Depression with anxiety Social History Tobacco Use [...] on file documented as of this encounter Miscellaneous Notes * Telephone Encounter - Lyndsey Oliva MD - 04/06/2022 10:58 AM EST Not appropriate * Telephone Encounter - Tran Sykes MA - 04/06/2022 10:05 AM EST PLEASE REFUSE This was filled on 03/31/22. documented in this encounter Plan of Treatment Not on file documented as of this encounter Visit Diagnoses Diagnosis Depression with anxiety Dysthymic disorder documented in this encounter Care Teams Registered Phlebotomist Part Time Relationship Specialty Start Date End Date Gloria Gomez NP [address] [place] [address] PCP - General Pediatrics 09/13/22 documented as of this encounter
== END 2024-07-08 13:58 | disposition home or self-care (01) ==
LOC: HO.HMCC 11:59
PROVIDERS: PCP Internal Medicine; Visit Provider Internal Medicine
DX: Z00.00 Encounter for general adult medical examination without abnormal findings (principal); E66.01 Morbid (severe) obesity due to excess calories; Z68.39 Body mass index [BMI] 39.0-39.9, adult; J45.20 Mild intermittent asthma, uncomplicated; E28.2 Polycystic ovarian syndrome

== ENCOUNTER → 2024-07-08 11:59 | Outpatient (BNVA) | payer OTHER, SELFPAY | PROVIDERS: PCP Internal Medicine; Visit Provider Internal Medicine | DX: Z00.01 Encounter for general adult medical examination with abnormal findings (principal); E66.01 Morbid (severe) obesity due to excess calories; J45.20 Mild intermittent asthma, uncomplicated; E55.9 Vitamin D deficiency, unspecified; E28.2 Polycystic ovarian syndrome; F41.9 Anxiety disorder, unspecified; Z68.39 Body mass index [BMI] 39.0-39.9, adult | CPT/HCPCS: 96127; 99385 ==

== ENCOUNTER 2025-03-11 16:12 | Outpatient (AMB) | payer OTHER, SELFPAY ==
[2025-03-11 16:27] VITALS: BP 118/82; PULSE 88; RESP 16; TEMP 37.1; O2SAT 99; BMI 39.9
--- NOTE | 2025-03-11 16:27 | A.OFFPC_ITS ---
Vital Signs 03/11/25 16:27 Height 5 ft 1 in Weight 211 lb BMI 39.9 BP 118/82 Blood Pressure Location Lt brachial Position Sitting Respiration 16 Pulse 88 Pulse Source Pulse Oximeter Temp 98.7 F Temp Source Oral Pulse Oximetry (%) 99 Intake Visit Reasons: weight loss - Phentamine refill follow-up Assistant Hairstylist Required: No Allergies No Known Allergies Allergy (Verified 03/11/25 16:31) Medication List - Last Reconciled 03/11/25 by Sanjana Huang MD albuterol sulfate 90 mcg/actuation 2 puffs inhalation Q6H PRN etonogestrel (Nexplanon) subdermal triamcinolone acetonide 0.1% 1 appl topical DAILY 10 days Tobacco use date assessed: 03/11/25 Dental Screening Dental Screen Date: 03/11/25 Did you have a dental visit in the last 12 months?: Yes Did you have a dental problem in the last 6 months where you did not have access to dental care?: No Was dental information given to patient?: Patient has dentist HPI HPI Comments History of Present Illness Details The patient is a 24 year old female presenting for follow-up on weight management. She has a history of weight fluctuations, having previously lost weight down to 185 lbs after by going to the gym, but has since regained it after stopping her gym routine. She was previously on phentermine 15 mg in June, which helped with controlled her appetite but did not result in the desired amount of weight loss. The patient's current weight goal is to be under 200 lbs. [facility] Medical History Mild intermittent asthma PCOS (polycystic ovarian syndrome) Back pain Morbid obesity Surgical History History of Family History Father Glioblastoma Mother Essential hypertension Social History Housing: Apartment Patient Tobacco Use Status: Former Tobacco user e-Cigarette/Vaping Use: Currently Using service: No Current occupational status: employed Current occupational exposures/hazards: No Cognitive needs: No Hearing needs: No Vision needs: No Female Reproductive History Menstrual control method: implanted Other: goes to [facility] Questionnaire PHQ-9 Over the last 2 weeks, how often have you been bothered by any of the following problems? 1. Little interest or pleasure in doing things: not at all 2. Feeling down, depressed, or hopeless: not at all 3. Trouble falling or staying asleep, or sleeping too much: not at all 4. Feeling tired or having little energy: several days 5. Poor appetite or overeating: not at all 6. Feeling bad about yourself - or that you are a failure or have let yourself or your family down: not at all 7. Trouble concentrating on things, such as reading the newspaper or watching television: not at all 8. Moving or speaking so slowly that other people could have noticed. Or the opposite - being so fidgety or restless that you have been moving around a lot more than usual: not at all 9. Thoughts that you would be better off or of hurting yourself in some way: not at all Total score: 1 Depression Screening Interpretation: Negative Depression Screening Done: Yes Source: Developed by Drs. Douglas Gan, Flavia Paz, Mert Centeno and colleagues, with an educational elías from [employer]. Thrive Questionnaire Date Thrive assessed: 07/01/24 I am a: Patient What is your living situation today?: I have a steady place to live Within the past 12 months, did the food you bought not last and you didn't have the money to get more?: Sometimes True Within the past 12 months, did you worry whether your food would run out before you got money to buy more?: Sometimes True Do you have trouble paying for medicines?: No Do you have trouble getting transportation to medical appointments?: No Do you have trouble paying your heating and electricity bill?: No Do you have trouble taking care of your child, family member or friend?: No Do you have trouble with day-to-day activities such as bathing, preparing meals, shopping, managing finances, etc.?: Yes Are you currently unemployed and looking for a job?: No Are you interested in more education?: No Please select the resources that you would like help with: None Currently or been in a relationship where the following occur: I choose not to answer THRIVE Score: 2 CARLITA-7 AMB Questionnaire CARLITA-7 Date CARLITA - 7 assessed: 07/08/24 Source: Developed by Drs. Douglas Gan, Flavia Paz, Mert Centeno and colleagues, with an educational elías from [employer]. Review of Systems Narrative Constitution Reports no additional complaints Eyes no change in vision ENT Reports no additional complaints, Denies dysphagia and Denies odynophagia Cardiology Reports no additional complaints Respiratory Reports no additional complaints GI Denies abdominal pain, Denies belching, Denies melena, Denies bloating, Denies change in bowel habits, Denies dysphagia, Denies excessive flatus, Denies dyspepsia, Denies heartburn, Denies diarrhea, Denies loose stools, Denies nausea, Denies odynophagia and Denies vomiting Reports no additional complaints Muscular no additional complaints Neurology Reports no additional complaints, Denies Abnormal speech present and Denies Sensory deficit (Neuro) Psychiatry Reports no additional complaints Endocrine Reports no additional complaints Agusto/Lymph Reports no additional complaints Aller/Immun Reports no additional complaints Physical exam (Primary Care) Vital Signs: Last Vital Signs Temp 98.7 F 03/11/25 16:27 Pulse 88 03/11/25 16:27 Resp 16 03/11/25 16:27 BP 118/82 03/11/25 16:27 Pulse Ox 99 03/11/25 16:27 BMI result Body Mass Index 39.9 Tobacco/Smoking Status: Tobacco use Status Tobacco use date assessed 07/08/24 07/08/24 12:48 Patient Tobacco Use Status Never used Tobacco 07/08/24 12:48 e-Cigarette/Vaping Use Currently Using 07/08/24 12:48 Depression Screening Interpretation: Negative Thrive Assessment: Date of Thrive Assessment Date Thrive assessed 07/01/24 03/11/25 16:13 Currently or been in a relationship where the following occur: I choose not to answer Narrative Physical Exam - Vitals: Blood pressure is good. - General: Patient has been gaining weight. Const General: no acute distress and alert Orientation/consciousness: patient oriented x3 HENMT Ears: external ears normal General nose exam: Normal external nose present Face and sinus: Yes face symmetric Eyes General: appearance normal, both eyes and all related structures Neck Neck: Yes full ROM, Yes no lymphadenopathy and Yes supple Thyroid: Thyroid normal Resp Effort & Inspection: normal respiratory effort and able to speak in complete sentences Auscultation: clear to auscultation bilaterally Cardio Rate: regular rate Rhythm: regular rhythm Heart sounds: S1 normal heart sound present and S2 normal heart sound present GI Palpation (GI): Soft to palpation, nontender, no guarding and no masses Auscultation: normal bowel sounds Neuro General: patient oriented x3, gait normal, moves all extremities, Normal light touch and pain sensation, no focal motor deficits and CN's II-XI intact bilaterally Cognition (Neuro): normal cognition Gait exam (Neuro): Normal gait present Extrem General: Yes normal to inspection, Yes full ROM, Yes no joint enlargement, Yes no pedal edema and Yes normal gait Psych Appearance: grossly normal and well kempt Mental Status: mental status grossly normal Speech and movement: Normal speech and movement present Affect: normal affect Coding Level of Care Code Est Pt Level 4 (41700) Diagnoses Morbid obesity E66.01 Assessment & Plan Assessment & Plan (1) Morbid obesity: Code(s): E66.01 - Morbid (severe) obesity due to excess calories Category: Medical Plan: The patient is seeking assistance with weight management. She has had a suboptimal response to phentermine 15 mg mg when she was on it earlier this year . Will start her on 30 mg of phentermine to take as directed. She was counseled that phentermine is a short-term solution and should be combined with lifestyle changes, including diet modification (avoiding soda, not eating late) and exercise (resuming gym activities with 15 minutes of cardio). The prescription will be for a three-month course, which may be extended to four months if effective. Towards the end of the treatment course, she should taper the medication by taking it every other day or every few days. A follow-up appointment is scheduled in 6 weeks to assess progress and determine if a dose adjustment to 37.5 mg is needed. The patient's weight goal is under 200 lbs Plan Patient was informed and verbally consented to the use of an ambient scribe for clinic note documentation during this visit.
--- OUTSIDE RECORDS SUMMARY | 2025-03-11 20:11 | XMS_ITS | Encounter Summary ---
Author Organization [facility] Address [address] [place] [address] Phone Care Team Providers Care Sports Book Server Name Role Phone Gloria Gomez SCALE INSTALLER Primary Care Provider [phone] Encounter Details Date Type Department Care Team (Late st Contact Info) Description 06/18/2014 Conversion Encounter [facility] [address] [facility] [place] [address] Social History Tobacco Use Types Packs/Day Years [...] on filedocumented in this encounter Care Teams Sports Book Server Relationship Specialty Start Date End Date Gloria Gomez NP [address] [place] [address] [place] [address] PCP - General Pediatrics 09/13/22 documented as of this encounter
--- OUTSIDE RECORDS SUMMARY | 2025-03-11 20:11 | XMS_ITS | Encounter Summary ---
Author Organization [facility] Address [address] [place] [address] Phone Care Team Providers Care Window Installation Subcontractor Name Role Phone Gloria Gomez NP Primary Care Provider [phone] Reason for Visit * Reason Onset Date Comments Med Refill 08/18/2022 Encounter Details Date Type Department Care Team (Late st Contact Info) Description 08/18/2022 Refill [facility] [address] [place] [place] [address] Lyndsey Oliva MD [address] [place] [address] Mild intermittent asthma without complication; Anxiety with [...] depression documented in this encounter Care Teams Window Installation Subcontractor Relationship Specialty Start Date End Date Gloria Gomez NP [address] [place] [address] PCP - General Pediatrics 09/13/22 documented as of this encounter
--- OUTSIDE RECORDS SUMMARY | 2025-03-11 20:11 | XMS_ITS | Encounter Summary ---
Author Organization [facility] Address [address] [place] [address] Phone Care Team Providers Care Permit Agent Name Role Phone Gloria Gomez NP Primary Care Provider [phone] Reason for Visit * Reason Comments Med Refill Encounter Details Date Type Department Care Team (Late st Contact Info) Description 08/06/2020 Refill [facility] [address] [place] [address] Lyndsey Oliva MD [address] [place] [address] Depression with anxiety Social History Tobacco Use [...] disorder documented in this encounter Care Teams Permit Agent Relationship Specialty Start Date End Date Gloria Gomez NP [facility] [facility] [place] [address] PCP - General Pediatrics 09/13/22 documented as of this encounter
--- OUTSIDE RECORDS SUMMARY | 2025-03-11 20:11 | XMS_ITS | Clinical Summary ---
Author Organization [facility] Address [address] [place] [address] Phone Care Team Providers Care Supervisor Cured Meats Name Role Phone Gloria Gomez ROOF BOLTER OPERATOR Primary Care Provider Allergies Active Allergy Reactions Criticality Noted Date [...] EST): Exam is reassuring. No red flags. ?Mccreary. Mccreary spot negative. Will do EBV panel per patient request. Will do CBC to r/o bacterial infection. Follow up if symptoms persist or worsen. Viral Upper Respiratory Infection Plan: Encourage extra fluids and rest. The following may help: steamy baths cool-mist humidifiers nasal saline drops or sprays to help with congestion. Can use Ibuprofen or Acetaminophen for discomfort or fever. If older than one year of age, may offer 1-2 teaspoons of honey (straight, or mixed with tea or warm lemonade) to help with cough. Vicks chest rub may help with ease of breathing and reducing cough. Monitor for rapid breathing, retractions (labored breathing), wheezing, or shortness of breath. Call if worsening, fever for more than [...] Relation Name Comments No Known Problems Brother eGne No Known Problems Mother Kaycee No Known Problems Sister Francesca Relation Name Status Comments Brother Gene Alive Father Carlos 2014 from cance r Mother Kaycee Alive Sister Francesca Alive [...] 86 09/07/2022 10:32 AM EDT Temperature 36.6 C (97.8 F) 06/16/2022 2:26 PM EDT Respiratory Rate - - Oxygen Saturation - - Inhaled Oxygen Concentration - - Weight 99 kg (218 lb 3.2 oz) 09/07/2022 10:32 AM EDT Height 156.5 cm (5' 1.61 ) 01/18/2022 10:37 AM E DT Body Mass Index 40.41 01/18/2022 10:37 AM EDT Plan of Treatment Health Maintenance Due Date Last Done Comments Influenza Vaccines (#1) 2024 02/08/20 21, 01/19/2020, 01/31/2018, Additional history exists COVID-19 Vaccine ( season) 2024 12/24/2020, 12/03/2020 DTaP,Tdap,and Td Vaccines (8 - [...] Men B Vaccine Aged Out No longer elig ible based on patient's age to complete this topic Pneumococcal Vaccine Aged Out No long er eligible based on patient's age to complete this topic Procedures * Due to [place] state law, this organization might not be sharing sensitive test results. Procedure Name Priority Date/Time Associated Diagnosis Comments CHLAMYDIA GC AMP PROBE Routine 06/15/2021 2:04 PM EDT Well adult exam from Last 3 Months or Most Recently Relevant to Health Maintenance Results * Due to [facility] law, this organization might not be sharing sensitive test results. * CHLAMYDIA GC AMP PROBE (06/15/2021 2:04 PM EDT) Chlamydia Trachomatis, Amplified NEGATIVE (NEG) [facility] Comment: No Chlamydia Trachomatis RNA detected in this patient's sample (REFERENCE RANGE/NORMAL VALUE: NOT DETECTED) Note: This test uses applications tester- mediated amplification method to detect rRNA from C. Trachomatis N.GONORRHOEAE AMP PROBE NEGATIVE (NEG) [facility] Comment: No Neisseria Gonorrhoeae RNA detected in this patient's sample (REFERENCE RANGE/NORMAL VALUE: NOT DETECTED) NOTE: This test uses applications tester-mediated amplification method to detect rRNA from N.Gonorrhoeae. [...] without risk of sexual abuse. Consult the [facility] if needed. Contact phone number . Therapeutic failure or success cannot be determined with the Aptima Combo2 assay since nucleic acid may persist following appropriate antimicrobial therapy. The Centers for Disease Control and Prevention (CDC) recommends confirmatory retesting using culture or a different nucleic acid amplification test when positive results occur, if indicated. CHLAM/GC AMP PROBE SPEC TYPE VAGINAL SPECIMEN [facility] Comment: Testing performed or reported by [facility], a Service of [facility], [facility] [place] [address] Alex Tiwari MD, Track Laborer [facility]# [id number] Swab (Vagina) 06/15/2021 2:0 4 PM EDT 06/15/2021 7:57 PM EDT us Lyndsey Oliva MD LAB MICROBIOLOGY - GENERAL ORDER SANDIE Final Result [facility] from Last 3 Months or Most Recently Relevant to Health Maintenance Care Teams Supervisor Cured Meats Relationship Specialty Start Date End Date Gloria Gomez NP [address] [facility] [address] [place] [address] PCP - General Pediatrics 09/13/22
--- OUTSIDE RECORDS SUMMARY | 2025-03-11 20:11 | XMS_ITS | Encounter Summary ---
Author Organization [facility] Address [address] [place] [address] Phone Care Team Providers Care Sales Development Manager Name Role Phone Gloria Gomez NP Primary Care Provider [phone] Reason for Visit * Reason Comments Med Refill Encounter Details Date Type Department Care Team (Late st Contact Info) Description 04/06/2022 Refill [facility] [address] [place] [address] Lyndsey Oliva MD [address] [place] [address] Depression with anxiety Social History Tobacco Use [...] disorder documented in this encounter Care Teams Sales Development Manager Relationship Specialty Start Date End Date Gloria Gomez NP [address] [place] [address] PCP - General Pediatrics 09/13/22 documented as of this encounter
== END 2025-03-11 16:42 | disposition home or self-care (01) ==
LOC: HO.HMCC 16:13
PROVIDERS: PCP Internal Medicine; Visit Provider Internal Medicine
DX: E66.01 Morbid (severe) obesity due to excess calories (principal); Z68.39 Body mass index [BMI] 39.0-39.9, adult

== ENCOUNTER → 2025-03-11 16:12 | Outpatient (BNVA) | payer OTHER, SELFPAY | PROVIDERS: PCP Internal Medicine; Visit Provider Internal Medicine | DX: E66.01 Morbid (severe) obesity due to excess calories (principal); Z68.39 Body mass index [BMI] 39.0-39.9, adult | CPT/HCPCS: 99212 ==